=== PATIENT | male | born 1965 | race Caucasian/White ===

== ENCOUNTER 2021-04-29 11:47 | Observation (INO) | payer BC ==
[~2021-04-29] VITALS: Ht 177.8 cm; Wt 106.6 kg
[2021-04-29 13:14] LABS: RED BLOOD COUNT 4.63 M/UL (4.20-5.50); WHITE BLOOD COUNT 8.6 K/UL (4.5-11.0)
[2021-04-29 14:06] LABS: BUN/CREATININE RATIO 19 (0-10)
[2021-04-29] MEDS ORDERED: SPIRONOLACTONE100 MG PO (16:47)
[2021-04-29] MEDS ORDERED: MULTIVITAMIN1 EACH PO (16:47)
[2021-04-29] MEDS ORDERED: LOSARTAN POTASS50 MG PO (16:47)
[2021-04-29] MEDS ORDERED: METFORMIN HCL500 MG PO (16:47)
[2021-04-30 02:26] LABS: HEMOGLOBIN 13.4 gm/dl (14.0-17.5); RED BLOOD COUNT 4.17 M/UL (4.20-5.50); WHITE BLOOD COUNT 7.6 K/UL (4.5-11.0)
[2021-04-30 03:24] LABS: BUN/CREATININE RATIO 16 (0-10)
== END 2021-04-30 19:35 | disposition home or self-care (01) ==
LOC: ER1 11:47 → M/S 14:58 → CDU 14:58 → M/S 16:04
PROVIDERS: Physician Assistant; ADMIT Internal Medicine
DX: R07.89 Other chest pain (principal); R42 Dizziness and giddiness; E11.9 Type 2 diabetes mellitus without complications; E78.1 Pure hyperglyceridemia; N17.9 Acute kidney failure, unspecified; I10 Essential (primary) hypertension; N28.9 Disorder of kidney and ureter, unspecified; R94.31 Abnormal electrocardiogram [ECG] [EKG]; Z79.84 Long term (current) use of oral hypoglycemic drugs; Z79.899 Other long term (current) drug therapy; Z20.822 Contact with and (suspected) exposure to COVID-19
CPT/HCPCS: ECHO; 71045; 78452; 80048; 80053; 80061; 82533; 82550; 82553; 82962; 83036; 83874; 84439; 84443; 84484; 85025; 90686; 93005; 93306; 99285; A9502; G0008; G0378; U0002